=== PATIENT | female | born 1965 | race Caucasian/White ===

== ENCOUNTER → 2017-05-22 | Outpatient (CLI) | payer OTHER | LOC: FIMAGING 18:38 | PROVIDERS: ATTEND Orthopaedic Surgery Foot and Ankle Surgery | DX: M79.672 Pain in left foot (principal) ==

== ENCOUNTER → 2017-12-26 | Outpatient (CLI) | payer OTHER | LOC: FIMAGING 12:14 | PROVIDERS: ATTEND Obstetrics & Gynecology | DX: Z12.31 Encounter for screening mammogram for malignant neoplasm of breast (principal); Z13.820 Encounter for screening for osteoporosis; Z78.0 Asymptomatic menopausal state ==

== ENCOUNTER → 2019-04-24 | Outpatient (CLI) | payer OTHER | LOC: FIMAGING 09:59 ==